=== PATIENT | male | born 1990 | race Caucasian/White ===

== ENCOUNTER 2019-07-22 07:50 | Emergency (ER) | payer OTHER ==
[~2019-07-22] VITALS: Ht 180.3 cm; Wt 73.1 kg
[2019-07-22 07:56] VITALS: BP 125/76
--- NOTE | 2019-07-22 08:26 | NUR ---
PT WITH C/O COUGH LASTING ONE MONTH, STATES HE THREW UP LAST NIGHT AND HIS COUGH IS NOW WORSE. PT DENIES CP, SOB, NV/D AT THIS TIME
== END 2019-07-22 09:06 | disposition home or self-care (01) ==
LOC: ED 08:21
DX: B34.9 Viral infection, unspecified (principal)
CPT/HCPCS: 71046; 99283

== ENCOUNTER 2019-12-22 23:32 | Emergency (ER) | payer SELFPAY ==
[~2019-12-22] VITALS: Ht 180.3 cm; Wt 77.9 kg
[2019-12-22 23:35] VITALS: BP 108/79
== END 2019-12-23 01:05 | disposition home or self-care (01) ==
LOC: ED 23:43
DX: K12.0 Recurrent oral aphthae (principal); B34.9 Viral infection, unspecified; F17.210 Nicotine dependence, cigarettes, uncomplicated
CPT/HCPCS: 71045; 99283

== ENCOUNTER 2020-01-21 19:43 | Emergency (ER) | payer OTHER ==
[~2020-01-21] VITALS: Ht 180.3 cm; Wt 76.1 kg
[2020-01-21 19:44] VITALS: BP 116/81
[2020-01-21] MEDS ORDERED: IBUPROFEN 800 MG TABLET ONE (20:59)
[2020-01-21] MEDS ORDERED: IBUPROFEN 800 MG TABLET PO ONE (21:00)
== END 2020-01-22 01:03 | disposition home or self-care (01) ==
LOC: ED 20:30
DX: S83.92XA Sprain of unspecified site of left knee, initial encounter (principal); S60.812A Abrasion of left wrist, initial encounter; M25.511 Pain in right shoulder; X50.0XXA Overexertion from strenuous movement or load, initial encounter; Y93.89 Activity, other specified; Y92.410 Unspecified street and highway as the place of occurrence of the external cause; Y99.8 Other external cause status
CPT/HCPCS: 29125; 99284

== ENCOUNTER 2020-12-24 08:10 | Emergency (ER) | payer MEDICAID ==
[~2020-12-24] VITALS: Ht 177.8 cm; Wt 76.2 kg
[2020-12-24] MEDS ORDERED: KETOROLAC 30 MG/1 ML ONE (08:50)
[2020-12-24 08:59] LABS: BASOPHILS % (AUTO) 1 % (0-1); EOSINOPHILS % (AUTO) 1 % (1-7); LYMPHOCYTES % (AUTO) 15 % (22-44); MEAN CORPUSCULAR HEMOGLOBIN 32.2 pg (27.5-34.5); MEAN CORPUSCULAR HGB CONC 34.3 g/dL (33.2-36.2); MONOCYTES % (AUTO) 9 % (2-9); NEUTROPHILS % (AUTO) 74 % (42-75); PLATELET COUNT 276 x10^3/uL (130-400); RED BLOOD COUNT 4.65 x10^6/uL (4.38-5.82); RED CELL DISTRIBUTION WIDTH 13.4 % (9.4-14.8)
[2020-12-24] MEDS ORDERED: SODIUM CHLORIDE FLUSH 10ML SYR IVF ONE (09:00)
[2020-12-24] MEDS ORDERED: METHOCARBAMOL 750 MG TABLET PO ONE (09:00)
[2020-12-24] MEDS ORDERED: KETOROLAC 30 MG/1 ML IVPush ONE (09:00)
[2020-12-24] MEDS ORDERED: METHOCARBAMOL 750 MG TABLET ONE (09:03)
[2020-12-24 09:07] LABS: ALANINE AMINOTRANSFERASE 76 U/L (12-78); ALBUMIN 3.8 g/dL (3.4-5.0); ANION GAP 7 mmol/L (5-15); CALCIUM 9.1 mg/dL (8.5-10.1); CHLORIDE 109 mmol/L (98-107); CREATININE 0.92 mg/dL (0.7-1.3)
[2020-12-24 09:09] LABS: ALKALINE PHOSPHATASE 83 U/L (45-117); BILIRUBIN,TOTAL 0.7 mg/dL (0.2-1.0); TOTAL PROTEIN 7.5 g/dL (6.4-8.2)
[2020-12-24 10:08] VITALS: BP 126/79
== END 2020-12-24 10:10 | disposition home or self-care (01) ==
LOC: ED 09:10
DX: M94.0 Chondrocostal junction syndrome [Tietze] (principal); R07.89 Other chest pain
CPT/HCPCS: 36415; 71046; 80053; 85025; 85379; 93005; 96374; 99285; J1885